=== PATIENT | female | born 1990 | race American Indian/Alaskan Native ===

== ENCOUNTER 2019-04-23 08:21 | Emergency (ER) | payer BC ==
[2019-04-23 08:36] VITALS: BP 144/75
[2019-04-23] MEDS: IBUPROFEN 800 MG TAB PO ONE (09:18)
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
[2019-04-23] MEDS: oxyCODONE /ACETAMINOPHEN 5-325MG TAB PO ONE (09:19)
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
== END 2019-04-23 10:20 | disposition home or self-care (01) ==
LOC: ED 08:21
DX: S80.12XA Contusion of left lower leg, initial encounter (principal); S80.11XA Contusion of right lower leg, initial encounter; Z79.1 Long term (current) use of non-steroidal anti-inflammatories (NSAID); Z79.899 Other long term (current) drug therapy; X58.XXXA Exposure to other specified factors, initial encounter; Y93.89 Activity, other specified; Y92.89 Other specified places as the place of occurrence of the external cause; Y99.8 Other external cause status

== ENCOUNTER 2020-01-13 20:56 | Emergency (ER) | payer SELFPAY ==
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
[2020-01-13 21:25] VITALS: BP 108/78
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
== END 2020-01-13 22:17 | disposition home or self-care (01) ==
LOC: ED 20:56
DX: S60.211A Contusion of right wrist, initial encounter (principal); V89.9XXA Person injured in unspecified vehicle accident, initial encounter; Y93.89 Activity, other specified; Y92.89 Other specified places as the place of occurrence of the external cause; Y99.8 Other external cause status
CPT/HCPCS: 99283